=== PATIENT | female | born 2000 | race Caucasian/White ===

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

== ENCOUNTER 2019-03-20 13:37 | Emergency (ER) | payer BC ==
[~2019-03-20] VITALS: Ht 165.1 cm; Wt 62.6 kg
[~2019-03-20 13:37] MED LIST changes: +KEFLEX500 M1 PO; +RISPERDAL3 M1 PO
[2019-03-20 15:26] LABS: BILIRUBIN NEGATIVE (NEGATIVE); BLOOD NEGATIVE (NEGATIVE); CLARITY CLEAR (CLEAR); COLOR YELLOW (YELLOW); GLUCOSE NEGATIVE (NEGATIVE); KETONE NEGATIVE (NEGATIVE); LEUKO ESTERASE NEGATIVE (NEGATIVE); NITRITE NEGATIVE (NEGATIVE); UROBILINOGEN 0.2 E.U./dl (0.2-1.0)
[2019-03-20 15:33] LABS: BACTERIA 2+; EPITHELIAL CELLS TNTC; MUCOUS 1+
[2019-03-20 15:40] VITALS: BP 103/53
[2019-03-20] MEDS ORDERED: IBU800 MG PO (15:42)
[2019-03-20] MEDS ORDERED: DELTASONE20 M1 PO (15:42)
== END 2019-03-20 14:56 | disposition home or self-care (01) ==
LOC: ED 13:37
PROVIDERS: Nurse Practitioner Family
DX: M54.42 Lumbago with sciatica, left side (principal); M54.41 Lumbago with sciatica, right side; Z79.899 Other long term (current) drug therapy; Z91.040 Latex allergy status

== ENCOUNTER → 2019-12-01 | Outpatient (CLI) | payer OTHER ==
[~2019-12-01] MED LIST changes: +DELTASONE20 M1 PO; +IBU800 MG PO
[2019-12-01 11:56] LABS: HEMATOCRIT 37.3 % (37.0-47.0); MEAN CELL VOLUME 89.7 fl (81.0-99.0); MEAN CORPUSCULAR HGB 30.8 pg (27.0-31.0); MEAN CORPUSCULAR HGB CONC 34.3 g/dl (33.0-37.0); MEAN PLATELET VOLUME 9.5 fl (9.6-12.3); RED BLOOD COUNT 4.16 10*6/uL (4.10-5.10); RED CELL DISTRI WIDTH 11.7 % (0-14.5); WHITE BLOOD COUNT 4.3 10*3/uL (4.8-10.8)
[2019-12-01 12:21] LABS: ALBUMIN 3.5 gm/dl (3.1-4.5); BUN 10 mg/dl (7-24); CHOLESTEROL 137 mg/dL (<200); CREATININE 0.64 mg/dL (0.55-1.02); SGOT/AST 11 IU/L (3-35); SGPT/ALT 29 U/L (12-78); TRIGLYCERIDES 39 mg/dl (<150); VLDL CHOLESTEROL 8 mg/dL (6-40)
[2019-12-01 15:29] LABS: ALKALINE PHOSPHATASE 42 U/L (45-117); CHLORIDE 111 mmol/L (98-107); POTASSIUM 4.3 mmol/L (3.5-5.1); SODIUM 142 mmol/L (136-145); TOTAL PROTEIN 7.2 gm/dL (6.4-8.2)
[2019-12-01 15:30] LABS: HDL CHOLESTEROL 45 mg/dl (40-60)
[2019-12-01 15:40] LABS: LDL CHOLESTEROL 84 mg/dL (9-159)
== END | disposition home or self-care (01) ==
LOC: LAB 11:25
PROVIDERS: Family Medicine
DX: Z13.220 Encounter for screening for lipoid disorders (principal); E55.9 Vitamin D deficiency, unspecified; N61.0 Mastitis without abscess; F29 Unspecified psychosis not due to a substance or known physiological condition

== ENCOUNTER → 2020-01-24 | Outpatient (CLI) | payer OTHER | END | disposition home or self-care (01) | LOC: COVID19 05:27 | DX: R07.0 Pain in throat (principal); Z20.828 Contact with and (suspected) exposure to other viral communicable diseases ==

== ENCOUNTER → 2020-03-17 | Outpatient (CLI) | payer OTHER | END | disposition home or self-care (01) | LOC: RAD 11:59 | PROVIDERS: ATTEND Family Medicine | DX: R07.82 Intercostal pain (principal) ==

== ENCOUNTER → 2021-05-03 | Outpatient (CLI) | payer OTHER | END | disposition home or self-care (01) | LOC: CT 00:50 | PROVIDERS: ATTEND Family Medicine | DX: R04.2 Hemoptysis (principal) ==

== ENCOUNTER → 2022-10-21 | Outpatient (CLI) | payer OTHER ==
[~2022-10-21] MED LIST changes: +ARISTADA1064 MG/3. IM; +LORAZEPAM0.5 M1 PO
[2022-10-21 09:00] LABS: BASO % 0.5 % (0.0-1.0); EOS # 0.2 10*3/uL (0.0-0.4); EOS % 3.5 % (1.0-4.0); HEMATOCRIT 40.8 % (37.0-47.0); LYMPH # 1.4 10*3/uL (1.3-4.4); LYMPH % 24.5 % (27.0-41.0); MEAN CELL VOLUME 92.3 fl (81.0-99.0); MEAN CORPUSCULAR HGB 32.4 pg (27.0-31.0); MEAN PLATELET VOLUME 9.9 fl (9.6-12.3); MONO # 0.4 10*3/uL (0.1-1.0); NEUT # 3.7 10*3/uL (2.3-7.9); NEUT % 64.2 % (47.0-73.0); PLATELET COUNT AUTOMATED 246 10*3/uL (130-400); RED BLOOD COUNT 4.42 10*6/uL (4.10-5.10); RED CELL DISTRI WIDTH 12.4 % (0-14.5); RETICULOCYTE % 1.83 % (0.50-2.50); WHITE BLOOD COUNT 5.7 10*3/uL (4.8-10.8)
[2022-10-21 09:10] LABS: BILIRUBIN Negative (Negative); BLOOD Negative (Negative); CLARITY Clear (Clear); COLOR Yellow (Yellow); GLUCOSE Negative (Negative); KETONE Trace (Negative); LEUKO ESTERASE Negative (Negative); NITRITE Negative (Negative); PH 5.5 (4.5-8.0)
[2022-10-21 09:41] LABS: BACTERIA 2+; MUCOUS 2+
[2022-10-21 09:45] LABS: ALKALINE PHOSPHATASE 46 U/L (46-116); BETA-HCG, QUANT < 3.0 mIU/mL (0-10); BUN 11 mg/dl (9-23); CHLORIDE 109 mmol/L (98-107); CHOLESTEROL 108 mg/dL (<200); GAMMA GLUTAMYL TRANSPEPTIDASE 20 U/L (0-73); LDL CHOLESTEROL 54 mg/dL (9-159); POTASSIUM 3.9 mmol/L (3.4-5.1); SGPT/ALT 18 U/L (10-49); T3 UPTAKE 27.3 % (22.4-36.7); THYROXINE (T4) TOTAL 9.7 ug/dl (4.5-10.9); TOTAL PROTEIN 7.2 gm/dL (6.0-8.0); TRIGLYCERIDES 42 mg/dl (<150); URIC ACID 4.8 mg/dL (3.1-7.8)
[2022-10-21 09:48] LABS: B-hCG (QUALITATIVE) NEGATIVE (NEGATIVE)
[2022-10-21 13:27] LABS: VITAMIN D, 25-HYDROXY 42.3 ng/mL (30-100)
[2022-10-22 15:07] LABS: ANTI-DSDNA ANTIBODIES <1 IU/mL (0-9)
[2022-10-23 02:06] LABS: TESTOSTERONE FREE, (DIRECT) 3.3 pg/mL (0.0-4.2)
[2022-10-24 16:08] LABS: DEHYDROEPIANDROSTERONE 318 ng/dL (31-701)
== END | disposition home or self-care (01) ==
LOC: LAB 07:47
PROVIDERS: ATTEND Family Medicine
DX: E55.9 Vitamin D deficiency, unspecified (principal); R79.89 Other specified abnormal findings of blood chemistry; R53.83 Other fatigue; R74.8 Abnormal levels of other serum enzymes; N92.6 Irregular menstruation, unspecified

== ENCOUNTER 2022-10-22 21:53 | Emergency (ER) | payer OTHER ==
[~2022-10-22] VITALS: Ht 165.1 cm; Wt 45.4 kg
[~2022-10-22 21:53] MED LIST changes: -ARISTADA1064 MG/3. IM; -LORAZEPAM0.5 M1 PO
[2022-10-22] MEDS ORDERED: LORAZEPAM0.5 M1 PO (22:06)
[2022-10-22] MEDS ORDERED: ARISTADA1064 MG/3. IM (22:07)
[2022-10-22 22:33] LABS: BILIRUBIN Negative (Negative); BLOOD Negative (Negative); CLARITY Clear (Clear); COLOR Yellow (Yellow); GLUCOSE Negative (Negative); KETONE Negative (Negative); LEUKO ESTERASE Trace (Negative); NITRITE Negative (Negative); SPECIFIC GRAVITY 1.025 (1.001-1.030)
[2022-10-23 00:54] VITALS: BP 126/50
== END 2022-10-23 01:12 | disposition home or self-care (01) ==
LOC: ED 21:53
PROVIDERS: Internal Medicine
DX: B34.9 Viral infection, unspecified (principal); M54.50 Low back pain, unspecified; H57.89 Other specified disorders of eye and adnexa; R63.4 Abnormal weight loss; Z91.040 Latex allergy status; Z88.1 Allergy status to other antibiotic agents; Z88.8 Allergy status to other drugs, medicaments and biological substances; Z20.822 Contact with and (suspected) exposure to COVID-19; Z79.899 Other long term (current) drug therapy

== ENCOUNTER 2023-04-01 01:26 | Emergency (ER) | payer OTHER ==
[~2023-04-01] VITALS: Ht 165.1 cm; Wt 47.2 kg
[~2023-04-01 01:26] MED LIST changes: +ARISTADA1064 MG/3. IM; +LORAZEPAM0.5 M1 PO
[2023-04-01 01:36] VITALS: BP 106/69
[2023-04-01 02:11] LABS: BILIRUBIN Negative (Negative); BLOOD Negative (Negative); CLARITY Clear (Clear); COLOR Yellow (Yellow); GLUCOSE Negative (Negative); KETONE Negative (Negative); LEUKO ESTERASE 1+ (Negative); NITRITE Negative (Negative); PH 7.5 (4.5-8.0); SPECIFIC GRAVITY <= 1.005 (1.001-1.030); UROBILINOGEN 0.2 E.U./dl (0.0-1.0)
== END 2023-04-01 04:02 | disposition home or self-care (01) ==
LOC: ED 01:26
PROVIDERS: Internal Medicine
DX: N20.0 Calculus of kidney (principal); Z91.040 Latex allergy status; Z88.8 Allergy status to other drugs, medicaments and biological substances

== ENCOUNTER 2025-02-03 13:08 | Emergency (ER) | payer OTHER ==
[~2025-02-03] VITALS: Ht 167.6 cm; Wt 48.2 kg
[2025-02-03 13:19] VITALS: BP 125/70
[2025-02-03 13:32] LABS: BILIRUBIN Negative (Negative); BLOOD 1+ (Negative); CLARITY Cloudy (Clear); COLOR Yellow (Yellow); KETONE Trace (Negative); LEUKO ESTERASE 2+ (Negative); NITRITE Negative (Negative); PH 5.5 (4.5-8.0); SPECIFIC GRAVITY 1.015 (1.001-1.030); UROBILINOGEN 0.2 E.U./dl (0.0-1.0)
[2025-02-03 14:07] LABS: MEAN CELL VOLUME 91.9 fl (81.0-99.0); MEAN CORPUSCULAR HGB 31.0 pg (27.0-31.0); MEAN PLATELET VOLUME 9.2 fl (9.6-12.3); NUCLEATED RED BLOOD CELL 0.0 % (0.0-0.0); NUCLEATED RED BLOOD CELL 0.0 10*3/uL (0.0-0.0); PLATELET COUNT AUTOMATED 164 10*3/uL (130-400); RED CELL DISTRI WIDTH 12.1 % (0-14.5)
[2025-02-03 14:08] LABS: MANUAL DIFF REFLEX YES
[2025-02-03 14:09] LABS: BACTERIA 3+; EPITHELIAL CELLS 16-20; MUCOUS 1+; WBC 16-20 wbc/hpf (0-5)
[2025-02-03] MEDS ORDERED: SODIUM CHLORIDE 0.9% 1,000 ML IV ONE (14:20)
[2025-02-03 14:26] LABS: BUN 8 mg/dl (9-23)
[2025-02-03 14:33] LABS: PLATELET SUFFICIENCY NORMAL (NORMAL)
[2025-02-03] MEDS ORDERED: ACETAMINOPHEN 100 ML IV ONE (14:55)
[2025-02-03] MEDS ORDERED: SEPTDS PO (15:59)
== END 2025-02-03 16:08 | disposition home or self-care (01) ==
LOC: ED 13:08
PROVIDERS: Nurse Practitioner Family
DX: N12 Tubulo-interstitial nephritis, not specified as acute or chronic (principal); Z87.442 Personal history of urinary calculi; Z88.6 Allergy status to analgesic agent; Z91.040 Latex allergy status; Z88.1 Allergy status to other antibiotic agents

== ENCOUNTER 2025-03-04 23:46 | Emergency (ER) | payer OTHER ==
[~2025-03-04] VITALS: Ht 170.1 cm
[~2025-03-04 23:46] MED LIST changes: +SEPTDS PO
[2025-03-05] VITALS: BP 136/70
[2025-03-05 01:13] LABS: BASO # 0.0 10*3/uL (0.0-0.1); BASO % 0.3 % (0.0-1.0); EOS # 0.0 10*3/uL (0.0-0.4); EOS % 0.6 % (1.0-4.0); MEAN CELL VOLUME 92.0 fl (81.0-99.0); MEAN CORPUSCULAR HGB 31.1 pg (27.0-31.0); MEAN PLATELET VOLUME 9.4 fl (9.6-12.3); MONO # 0.5 10*3/uL (0.1-1.0); MONO % 15.5 % (3.0-9.0); NEUT # 2.4 10*3/uL (2.3-7.9); NEUT % 76.3 % (47.0-73.0); NUCLEATED RED BLOOD CELL 0.0 % (0.0-0.0); NUCLEATED RED BLOOD CELL 0.0 10*3/uL (0.0-0.0); PLATELET COUNT AUTOMATED 137 10*3/uL (130-400); RED CELL DISTRI WIDTH 12.5 % (0-14.5)
[2025-03-05 01:13] LABS: BILIRUBIN Negative (Negative); BLOOD Negative (Negative); CLARITY Clear (Clear); COLOR Yellow (Yellow); KETONE Negative (Negative); LEUKO ESTERASE Negative (Negative); NITRITE Negative (Negative); PH 6.5 (4.5-8.0); SPECIFIC GRAVITY <= 1.005 (1.001-1.030); UROBILINOGEN 0.2 E.U./dl (0.0-1.0)
[2025-03-05 01:23] LABS: BACTERIA 1+; MUCOUS TRACE; RBC 0-2 rbc/hpf (0-2)
[2025-03-05 01:34] LABS: BUN 7 mg/dl (9-23); SGPT/ALT 18 U/L (5-49)
[2025-03-05] MEDS ORDERED: DEXAMETHASONE6 MG PO (01:58)
[2025-03-05] MEDS ORDERED: VENT7GM INH (01:58)
== END 2025-03-05 02:23 | disposition home or self-care (01) ==
LOC: ED 23:46
PROVIDERS: Internal Medicine
DX: U07.1 COVID-19 (principal); R25.1 Tremor, unspecified